=== PATIENT | female | born 1975 | race Caucasian/White ===

== ENCOUNTER 2016-10-07 12:20 | Emergency (ER) | payer OTHER ==
[2016-10-07 11:49] LABS: BASOPHILS 0.6 %; BASOPHILS ABSOLUTE 0.04 10/3/uL (0.0-0.16); EOSINOPHILS ABSOLUTE 0.14 10/3/uL (0.0-0.53); ER CBC TAT 0 Hrs 07 Mins; HEMATOCRIT 39.1 % (36.0-48.0); HEMOGLOBIN 13.8 g/dL (12.0-16.0); IMMATURE GRANULOCYTES 0.3 %; IMMATURE GRANULOCYTES ABSOLUTE 0.02 10/3/uL (0.0-0.11); LYMPHOCYTES 36.6 %; LYMPHOCYTES ABSOLUTE 2.52 10/3/uL (0.67-4.30); MANUAL DIFF NO %; MEAN CORPUS HGB CONC 35.3 g/dL (32.0-36.0); MEAN CORPUSCULAR HEMOGLOB 32.2 pg (26.0-34.0); MEAN CORPUSCULAR VOLUME 91.1 fL (80-100); MEAN PLATELET VOLUME 9.2 fL (9.2-13.0); MONOCYTES 5.5 %; MONOCYTES ABSOLUTE 0.38 10/3/uL (0.21-1.20); NEUTROPHILS ABSOLUTE 3.79 10/3/uL (2.02-8.40); PLATELET COUNT 226 10/3/uL (150-400); RBC DISTRIBUTION WIDTH 12.6 % (12.0-16.0); RED CELL COUNT 4.29 10/6/uL (4.0-5.6); WHITE BLOOD CELLS 6.9 10/3/uL (4.5-10.5)
[2016-10-07 12:01] LABS: A/G RATIO 1.3 (0.7-1.9); ALKALINE PHOSPHATASE 59 U/L (45-117); CALCIUM, SERUM 9.1 MG/DL (8.5-10.4); CHLORIDE, SERUM 98 MMOL/L (96-112); GFR AFRICAN AMERICAN 123 ML/MIN (>=60); GFR NON AFRICAN AMERICAN 106 ML/MIN (>=60); GLOBULIN 3.2 G/DL (2.5-4.1); SGOT(AST) 26 U/L (5-40); SGPT(ALT) 26 U/L (5-65); SODIUM, SERUM 135 MMOL/L (135-148); TOTAL BILIRUBIN 0.7 MG/DL (0-1.2); TOTAL PROTEIN 7.2 G/DL (6.0-8.5)
[2016-10-07 12:03] LABS: BUN (BLOOD UREA NITROGEN) 17 MG/DL (6-23); CO2 (CARBON DIOXIDE) 31 MMOL/L (24-34); GLUCOSE, SERUM 112 MG/DL (60-99); POTASSIUM, SERUM 3.6 MMOL/L (3.5-5.3)
[2016-10-07 12:04] LABS: ASCORBIC ACID (UR NOT ORDER) NEG (NEG); BILIRUBIN, URINE NEGATIVE (NEG); ER URINALYSIS TAT 0 Hrs 26 Mins; KETONE, URINE NEGATIVE (NEG); LEUKOCYTE ESTERASE(NOT OR TRACE (NEG); NITRITE (URINE) NEG (NEG); WBC (NOT ORDERED) (RFLEX) 12 (0-5)
[~2016-10-07 12:20] MED LIST: ATV.5 PO; CYANO1000T PO; HYZAAR 50/12.51 TAB PO; L20 PO; LEXAPRO5 MG PO; MULTIPLE VIT PO; P125 PO; PHENTERMINE37.5 MG OR
[2016-12-06] MEDS ORDERED: LEXAPRO20 PO (17:41)
[2016-12-06] MEDS ORDERED: P125 PO (17:41)
[2016-12-06] MEDS ORDERED: HYZAAR1 TAB PO (17:42)
[2016-12-07] MEDS ORDERED: KLOR-CON M2020 MEQ PO (13:46)
[2016-12-07] MEDS ORDERED: MAGOX4 PO (13:47)
[2016-12-07] MEDS ORDERED: L25 PO (13:50)
[2016-12-07] MEDS ORDERED: FOLIC PO (13:51)
[2016-12-07] MEDS ORDERED: PRILO PO (13:51)
[2016-12-07] MEDS ORDERED: PRAVAC PO (13:52)
[2016-12-07] MEDS ORDERED: ASAB PO (13:53)
[2016-12-07] MEDS ORDERED: VITAMIN B-121000 MC1 SL (13:54)
[2016-12-07] MEDS ORDERED: MULTIVITAMI1 PO (13:55)
== END 2016-10-07 15:06 | disposition home or self-care (01) ==
LOC: ER 12:20
PROVIDERS: Nurse Practitioner
DX: R11.2 Nausea with vomiting, unspecified (principal); I10 Essential (primary) hypertension; Z90.710 Acquired absence of both cervix and uterus; Z98.84 Bariatric surgery status; Z79.899 Other long term (current) drug therapy
CPT/HCPCS: 74177; 80053; 81001; 83690; 85025; 96374; 99284; J1170; J2405; Q9967